=== PATIENT | female | born 1990 | race Caucasian/White ===

== ENCOUNTER 2017-07-19 22:50 | Emergency (ER) | payer SELFPAY ==
[~2017-07-19] VITALS: Ht 165.1 cm; Wt 163.3 kg
[~2017-07-19 22:50] MED LIST: CEPH-507 PO; CITA10TA PO; HYDR-2890 PO; IBP800T PO; LORA1TAB PO; MEDR10TA PO; METR500T21; MTF500T PO; NAPR550T PO; NYST15CR3 TP; OMEP20CA12 PO; ONDAN4ODT PO; ORTHO NOVUM 1/35 PO; PRM25T PO; PROG200C6; RANI75TA30 PO; SPIR25TA3 PO; SULF1TAB35 PO; SULF1TAB38 PO; ZYPREXA; [UNRECOGNIZED DRUG - OTHER]
--- NOTE | 2017-07-19 23:21 | ED GU-Female ---
General Stated Complaint: PERIOD FOR 1MONTH Source: patient Exam Limitations: no limitations History of Present Illness Date Seen by Provider: Jul 19, 2017 Time Seen by Provider: 23:10 Initial Comments Patient presents to the ER by private conveyance with a chief complaint of for the last months she's had solid. She says she's been soaking a tampon and a pad the last couple days every hour and a half to 2 hours. She is not having any chest pain shortness of breath dizziness lightheadedness, falls. She does not have any other significant medical history except for PCO S for which she uses metformin. She is not on control. She is sexually active. She says this happened but same time last year and they gave her a shot of testosterone which stopped it and then started treating her for her PCO S. She has not seen a surgeon for this nor has she seen her primary care physician. Nothing tonight has changed about it other than for the last week she says she's felt a little short of breath. Patient had an endometrial biopsy last year that was unremarkable. Allergies and Home Medications Allergies Coded Allergies: No Known Drug Allergies (Unverified , 02/05/12) Home Medications Metformin Hcl 500 Mg Tablet, 1 EACH PO BID WITH MEALS, (Reported) Patient Home Medication List Home Medication List Reviewed: Yes Constitutional: No chills, No diaphoresis, No fever EENTM: No hearing loss, No blurred vision Respiratory: No cough, No short of breath Cardiovascular: No chest pain, No palpitations Gastrointestinal: No abdominal pain, No constipation, No nausea, No vomiting Genitourinary: denies discharge, denies dysuria : No (PCO S) Musculoskeletal: No back pain, No joint pain Past Tvkhyro-Rlvmse-Ywwrfz Hx Patient Social History Alcohol Use: Denies Use Recreational Drug Use: No Smoking Status: Never a Smoker Recent Foreign Travel: No Contact w/Someone Who Travel: No Recent Hopitalizations: No Reproductive System Hx Reproductive Disorders: No Sexually Transmitted Disease: No HIV/AIDS: No Female Reproductive Disorders: Polycystic Ovarian Dis Endocrine Endocrine Disorders: Diabetes, Non-Insulin dep Psychosocial Behavioral Health Disorders: Anxiety, Depression Blood Transfusions Adverse Reaction to a Blood Tr: No Family Medical History Significant Family History: No Pertinent Family Hx Physical Exam Vital Signs Vital Signs - First Documented 07/19/17 23:00 Temp 98.0 Pulse 106 Resp 20 B/P (MAP) 130/90 (103) Pulse Ox 97 O2 Delivery Room Air Capillary Refill : General Appearance: WD/WN, no apparent distress HEENT: PERRL/EOMI, normal ENT inspection, pharynx normal Cardiovascular: normal peripheral pulses, regular rate, rhythm, no edema Respiratory: chest non-tender, lungs clear, normal breath sounds, no respiratory distress, no accessory muscle use Gastrointestinal: normal bowel sounds, non tender, soft Extremities: non-tender, normal capillary refill Neurologic/Psychiatric: alert, normal mood/affect, oriented x 3 Skin: normal color, warm/dry Progress/Results/Core Measures Suspected Sepsis SIRS Temperature: Pulse: Respiratory Rate: Laboratory Tests 07/19/17 23:10: White Blood Count 12.8H Blood Pressure / Mean: Laboratory Tests 07/19/17 23:10: Creatinine 0.82, Platelet Count 316, Total Bilirubin 0.2 Results/Orders Lab Results Laboratory Tests Test 07/19/17 23:10 Range/Units White Blood Count 12.8 H 4.3-11.0 10^3/uL Red Blood Count 5.41 4.35-5.85 10^6/uL Hemoglobin 13.6 11.5-16.0 G/DL Hematocrit 44 35-52 % Mean Corpuscular Volume 82 80-99 FL Mean Corpuscular Hemoglobin 25 25-34 PG Mean Corpuscular Hemoglobin Concent 31 L 32-36 G/DL Red Cell Distribution Width 16.3 H 10.0-14.5 % Platelet Count 316 130-400 10^3/uL Mean Platelet Volume 11.9 H 7.4-10.4 FL Neutrophils (%) (Auto) 57 42-75 % Lymphocytes (%) (Auto) 33 12-44 % Monocytes (%) (Auto) 6 0-12 % Eosinophils (%) (Auto) 4 0-10 % Basophils (%) (Auto) 0 0-10 % Neutrophils # (Auto) 7.3 1.8-7.8 X 10^3 Lymphocytes # (Auto) 4.2 H 1.0-4.0 X 10^3 Monocytes # (Auto) 0.7 0.0-1.0 X 10^3 Eosinophils # (Auto) 0.5 H 0.0-0.3 10^3/uL Basophils # (Auto) 0.0 0.0-0.1 10^3/uL Sodium Level 138 135-145 MMOL/L Potassium Level 4.0 3.6-5.0 MMOL/L Chloride Level 105 98-107 MMOL/L Carbon Dioxide Level 23 21-32 MMOL/L Anion Gap 10 5-14 MMOL/L Blood Urea Nitrogen 14 7-18 MG/DL Creatinine 0.82 0.60-1.30 MG/DL Estimat Glomerular Filtration Rate > 60 BUN/Creatinine Ratio 17 Glucose Level 153 H 70-105 MG/DL Calcium Level 9.4 8.5-10.1 MG/DL Total Bilirubin 0.2 0.1-1.0 MG/DL Aspartate Amino Transf (AST/SGOT) 31 5-34 U/L Alanine Aminotransferase (ALT/SGPT) 61 H 0-55 U/L Alkaline Phosphatase 72 40-136 U/L Total Protein 7.3 6.4-8.2 GM/DL Albumin 3.9 3.2-4.5 GM/DL My Orders Orders - ROGER BYRD Cbc With Automated Diff (07/19/17 23:14) Comprehensive Metabolic Panel (07/19/17 23:14) Ondansetron Oral Dissolve Tab (Zofran (07/19/17 23:45) Us Non Ob Pelvis Comp/Transvag (07/20/17 00:01) Medications Given in ED Current Medications Medications Dose Ordered Sig/Christen Route Start Time Stop Time Status Last Admin Dose Admin Ondansetron HCl 4 mg ONCE ONCE PO 07/19/17 23:45 07/19/17 23:46 DC 07/20/17 00:28 4 MG Vital Signs/I&O Vital Sign - Last 12Hours 07/19/17 23:00 Temp 98.0 Pulse 106 Resp 20 B/P (MAP) 130/90 (103) Pulse Ox 97 O2 Delivery Room Air Capillary Refill : Diagnostic Imaging Diagonstic Imaging: Ultrasound Plain Films/CT/US/NM/MRI: pelvis Comments Impression: Endometrial thickening. Ovaries not visualized bilaterally. Stat read Reviewed: Reviewed [place] Study, Reviewed by Me Departure Impression Impression: Primary Impression: Abnormal uterine bleeding Disposition: HOME, SELF-CARE Condition: Stable Departure-Patient Inst. Decision time for Depature: 01:14 Referrals: [facility] (PCP/Family) Primary Care Physician Patient Instructions: Heavy Periods (DC) Add. Discharge Instructions: Drink plenty of fluids follow up with [facility]. He can also follow up with an PROGRAMMING ENGINEER of your choice. Copy Copies To 1: MAEGAN DOTSON TITUS J Jul 19, 2017 23:21
[2017-07-19 23:24] LABS: BASOPHILS % (AUTO) 0 % (0-10); EOSINOPHILS # (AUTO) 0.5 10^3/uL (0.0-0.3); EOSINOPHILS % (AUTO) 4 % (0-10); HEMATOCRIT 44 % (35-52); HEMOGLOBIN 13.6 G/DL (11.5-16.0); LYMPHOCYTES # (AUTO) 4.2 X 10^3 (1.0-4.0); LYMPHOCYTES % (AUTO) 33 % (12-44); MEAN CORPUSCULAR HEMOGLOBIN 25 PG (25-34); MEAN CORPUSCULAR HGB CONC 31 G/DL (32-36); MEAN CORPUSCULAR VOLUME 82 FL (80-99); MEAN PLATELET VOLUME 11.9 FL (7.4-10.4); MONOCYTES # (AUTO) 0.7 X 10^3 (0.0-1.0); MONOCYTES % (AUTO) 6 % (0-12); NEUTROPHILS # (AUTO) 7.3 X 10^3 (1.8-7.8); NEUTROPHILS % (AUTO) 57 % (42-75); PLATELET COUNT 316 10^3/uL (130-400); RED BLOOD COUNT 5.41 10^6/uL (4.35-5.85); RED CELL DISTRIBUTION WIDTH 16.3 % (10.0-14.5); WHITE BLOOD COUNT 12.8 10^3/uL (4.3-11.0)
[2017-07-19] MEDS ORDERED: SPIR25TA3 PO (23:25)
[2017-07-19] MEDS ORDERED: ONDANSETRON 4 MG (ZOFRAN) ORAL DISSOLVE TAB PO ONE (23:45)
[2017-07-19 23:46] LABS: ALANINE AMINOTRANSFERASE 61 U/L (0-55); ALBUMIN 3.9 GM/DL (3.2-4.5); ALKALINE PHOSPHATASE 72 U/L (40-136); BILIRUBIN,TOTAL 0.2 MG/DL (0.1-1.0); BUN/CREATININE RATIO 17; CALCIUM 9.4 MG/DL (8.5-10.1); CARBON DIOXIDE 23 MMOL/L (21-32); CHLORIDE 105 MMOL/L (98-107); CREATININE SERUM 0.82 MG/DL (0.60-1.30); GFR ESTIMATED > 60; GLUCOSE 153 MG/DL (70-105); SODIUM 138 MMOL/L (135-145); TOTAL PROTEIN 7.3 GM/DL (6.4-8.2)
[2017-07-20 01:25] VITALS: BP 122/88
--- NOTE | 2017-07-20 06:59 | Diagnostic Imaging Report ---
INDICATION: Bleeding. TECHNIQUE: Multiple real-time grayscale images were obtained of the pelvis both transabdominally and endovaginally. FINDINGS: Uterus measures 8.4 x 4.1 x 4.3 cm. Endometrial thickness is 2 cm. Neither ovary was visualized. The examination was limited due to patient's body habitus. There are no obvious adnexal masses. No free pelvic fluid. IMPRESSION: Thickening of endometrium up to 2 cm. While this may reflect the proliferative phase of the patient's menstrual cycle, this is thicker than expected. Possibility of endometrial hyperplasia or polyp or less likely endometrial carcinoma cannot be excluded. Recommend clinical correlation. Dictated by: Dictated on workstation # [id number]
== END 2017-07-20 01:25 | disposition home or self-care (01) ==
LOC: EDUNIT# 22:50 → ER 22:52
DX: N93.8 Other specified abnormal uterine and vaginal bleeding (principal); E11.9 Type 2 diabetes mellitus without complications; F41.9 Anxiety disorder, unspecified; F32.9 Major depressive disorder, single episode, unspecified; Z79.84 Long term (current) use of oral hypoglycemic drugs; Z87.42 Personal history of other diseases of the female genital tract
CPT/HCPCS: 36415; 76830; 76856; 80053; 85025

== ENCOUNTER 2017-11-28 13:17 | Emergency (ER) | payer SELFPAY ==
[~2017-11-28] VITALS: Ht 162.6 cm; Wt 158.8 kg
[~2017-11-28 13:17] MED LIST changes: +SPIR25TA5 PO
[2017-11-28] MEDS ORDERED: METF500T5 PO (13:40)
[2017-11-28] MEDS ORDERED: NS IV 1000 ML 1,000 ML IV ONE (13:48)
[2017-11-28] MEDS ORDERED: inSUlin (REGULAR) HUMAN 1 UNIT/0.01 ML (CHARGE PER UNIT) IV STA (13:48)
[2017-11-28 13:54] LABS: BASOPHILS % (AUTO) 0 % (0-10); EOSINOPHILS # (AUTO) 0.5 10^3/uL (0.0-0.3); EOSINOPHILS % (AUTO) 6 % (0-10); HEMATOCRIT 34 % (35-52); HEMOGLOBIN 10.3 G/DL (11.5-16.0); LYMPHOCYTES # (AUTO) 3.5 X 10^3 (1.0-4.0); LYMPHOCYTES % (AUTO) 38 % (12-44); MEAN CORPUSCULAR HEMOGLOBIN 23 PG (25-34); MEAN CORPUSCULAR HGB CONC 30 G/DL (32-36); MEAN CORPUSCULAR VOLUME 74 FL (80-99); MEAN PLATELET VOLUME 12.9 FL (7.4-10.4); MONOCYTES # (AUTO) 0.5 X 10^3 (0.0-1.0); MONOCYTES % (AUTO) 6 % (0-12); NEUTROPHILS # (AUTO) 4.8 X 10^3 (1.8-7.8); NEUTROPHILS % (AUTO) 51 % (42-75); PLATELET COUNT 247 10^3/uL (130-400); RED BLOOD COUNT 4.57 10^6/uL (4.35-5.85); RED CELL DISTRIBUTION WIDTH 17.7 % (10.0-14.5); WHITE BLOOD COUNT 9.4 10^3/uL (4.3-11.0)
[2017-11-28 13:59] LABS: BILIRUBIN,URINE NEGATIVE (NEGATIVE); CLARITY,URINE SLIGHTLY CLOUDY; COLOR,URINE RED; GLUCOSE, URINE (UA) 4+ (NEGATIVE); KETONES,URINE 2+ (NEGATIVE); LEUKOCYTE ESTERASE ,URINE 1+ (NEGATIVE); NITRITE,URINE NEGATIVE (NEGATIVE); PH,URINE 5 (5-9); PROTEIN,URINE 3+ (NEGATIVE); UROBILINOGEN,URINE NORMAL (NORMAL)
[2017-11-28 14:05] LABS: BUN/CREATININE RATIO 13; CALCIUM 9.5 MG/DL (8.5-10.1); CARBON DIOXIDE 23 MMOL/L (21-32); CHLORIDE 104 MMOL/L (98-107); CREATININE SERUM 0.91 MG/DL (0.60-1.30); GFR ESTIMATED > 60; POTASSIUM 3.8 MMOL/L (3.6-5.0); SODIUM 136 MMOL/L (135-145)
[2017-11-28 14:06] LABS: ALANINE AMINOTRANSFERASE 79 U/L (0-55); ALBUMIN 3.7 GM/DL (3.2-4.5); ALKALINE PHOSPHATASE 92 U/L (40-136); BILIRUBIN,TOTAL 0.3 MG/DL (0.1-1.0); TOTAL PROTEIN 6.5 GM/DL (6.4-8.2)
[2017-11-28 14:09] LABS: GLUCOSE 432 MG/DL (70-105)
[2017-11-28 14:09] LABS: BACTERIA,URINE TRACE /HPF; RBC,URINE >100 /HPF
--- NOTE | 2017-11-28 14:47 | ED General ---
General Chief Complaint: Glucose Problems Stated Complaint: BS 465 Nursing Triage Note: ARRIVED VIA AMB TO ROOM 06. STATES HER BLOOD SUGAR HAS RAN IN THE 400'S ALL DAY. Nursing Sepsis Screen: No Definite Risk Source of Information: Patient Exam Limitations: No Limitations History of Present Illness Date Seen by Provider: Nov 28, 2017 Time Seen by Provider: 13:25 Initial Comments Here with report of elevated blood sugar that is been going on over the last week. Patient states that she's been drinking a large amount of fluid and urinating a lot. She has known hyperglycemia and is on agents but only oral agents. Denies fever or chills. Denies dysuria but does have frequency of larger volumes. Denies nausea, vomiting or diarrhea. Timing/Duration: 1 Week Severity: Moderate Associated Systoms: No Chest Pain, No Fever/Chills, No Nausea/Vomiting; Shortness of Air; No Weakness Allergies and Home Medications Allergies Coded Allergies: No Known Drug Allergies (Unverified , 02/05/12) Home Medications Metformin HCl 500 Mg Tablet, 500 MG PO TID, (Reported) Patient Home Medication List Home Medication List Reviewed: Yes Review of Systems Constitutional: see HPI; No chills, No fever EENTM: no symptoms reported Respiratory: no symptoms reported Cardiovascular: no symptoms reported Gastrointestinal: no symptoms reported Genitourinary: see HPI Musculoskeletal: no symptoms reported All Other Systems Reviewed Negative Unless Noted: Yes Past Vfnzbhx-Xxuejt-Ssxfia Hx Past Med/Social Hx: Reviewed Nursing Past Med/Soc Hx Patient Social History Alcohol Use: Occasionally Uses Recreational Drug Use: No Smoking Status: Current Everyday Smoker Type Used: Cigarettes Recent Foreign Travel: No Contact w/Someone Who Travel: No Recent Infectious Disease Expo: No Recent Hopitalizations: No Immunizations Up To Date PED Vaccines UTD: Yes Past Medical History Surgeries: Yes (wisdom teeth) Respiratory: No Cardiac: No Neurological: No Last Menstrual Period: Nov 28, 2017 Reproductive Disorders: No Female Reproductive Disorders: Polycystic Ovarian Dis Sexually Transmitted Disease: No HIV/AIDS: No Genitourinary: No Gastrointestinal: No Musculoskeletal: No Endocrine: Yes Diabetes, Non-Insulin dep Cancer: No Psychosocial: Yes Anxiety, Depression Integumentary: No Blood Disorders: No Adverse Reaction/Blood Tranf: No Family Medical History Reviewed Nursing Family Hx No Pertinent Family Hx Physical Exam Vital Signs Vital Signs - First Documented 11/28/17 13:25 Temp 98.0 Pulse 108 Resp 16 B/P (MAP) 151/98 (115) Pulse Ox 97 O2 Delivery Room Air Capillary Refill : Less Than 3 Seconds Height, Weight, BMI Height: 5'4.00" Weight: 350lbs. oz. 158.012369km; 58.24 BMI Method:Stated General Appearance: No Apparent Distress, WD/WN HEENT: PERRL/EOMI, Pharynx Normal Neck: Non Tender, Supple Respiratory: Lungs Clear, Normal Breath Sounds Cardiovascular: Regular Rate, Rhythm, No Murmur Gastrointestinal: Non Tender, Soft Back: Normal Inspection, No CVA Tenderness, No Vertebral Tenderness Extremity: Normal Range of Motion, Non Tender Neurologic/Psychiatric: Alert, Oriented x3 Skin: Normal Color, Warm/Dry Progress/Results/Core Measures Suspected Sepsis Recent Fever Within 48 Hours: No Infection Criteria Present: None New/Unexplained Altered Menta: No Sepsis Screen: No Definite Risk SIRS Temperature:98.0 Pulse: 108 Respiratory Rate: 16 Laboratory Tests 11/28/17 13:30: White Blood Count 9.4 Blood Pressure 151 /98 Mean: 115 Laboratory Tests 11/28/17 13:30: Creatinine 0.91, Platelet Count 247, Total Bilirubin 0.3 Results/Orders Lab Results Laboratory Tests Test 11/28/17 13:30 11/28/17 13:31 11/28/17 13:49 11/28/17 14:34 Range/Units White Blood Count 9.4 4.3-11.0 10^3/uL Red Blood Count 4.57 4.35-5.85 10^6/uL Hemoglobin 10.3 L 11.5-16.0 G/DL Hematocrit 34 L 35-52 % Mean Corpuscular Volume 74 L 80-99 FL Mean Corpuscular Hemoglobin 23 L 25-34 PG Mean Corpuscular Hemoglobin Concent 30 L 32-36 G/DL Red Cell Distribution Width 17.7 H 10.0-14.5 % Platelet Count 247 130-400 10^3/uL Mean Platelet Volume 12.9 H 7.4-10.4 FL Neutrophils (%) (Auto) 51 42-75 % Lymphocytes (%) (Auto) 38 12-44 % Monocytes (%) (Auto) 6 0-12 % Eosinophils (%) (Auto) 6 0-10 % Basophils (%) (Auto) 0 0-10 % Neutrophils # (Auto) 4.8 1.8-7.8 X 10^3 Lymphocytes # (Auto) 3.5 1.0-4.0 X 10^3 Monocytes # (Auto) 0.5 0.0-1.0 X 10^3 Eosinophils # (Auto) 0.5 H 0.0-0.3 10^3/uL Basophils # (Auto) 0.0 0.0-0.1 10^3/uL Sodium Level 136 135-145 MMOL/L Potassium Level 3.8 3.6-5.0 MMOL/L Chloride Level 104 98-107 MMOL/L Carbon Dioxide Level 23 21-32 MMOL/L Anion Gap 9 5-14 MMOL/L Blood Urea Nitrogen 12 7-18 MG/DL Creatinine 0.91 0.60-1.30 MG/DL Estimat Glomerular Filtration Rate > 60 BUN/Creatinine Ratio 13 Glucose Level 432 *H 70-105 MG/DL Calcium Level 9.5 8.5-10.1 MG/DL Total Bilirubin 0.3 0.1-1.0 MG/DL Aspartate Amino Transf (AST/SGOT) 41 H 5-34 U/L Alanine Aminotransferase (ALT/SGPT) 79 H 0-55 U/L Alkaline Phosphatase 92 40-136 U/L Total Protein 6.5 6.4-8.2 GM/DL Albumin 3.7 3.2-4.5 GM/DL Glucometer 422 *H 346 H 70-110 MG/DL Urine Color RED H Urine Clarity SLIGHTLY CLOUDY Urine pH 5 5-9 Urine Specific [place] 1.015 L 1.016-1.022 Urine Protein 3+ H NEGATIVE Urine Glucose (UA) 4+ H NEGATIVE Urine Ketones 2+ H NEGATIVE Urine Nitrite NEGATIVE NEGATIVE Urine Bilirubin NEGATIVE NEGATIVE Urine Urobilinogen NORMAL NORMAL MG/DL Urine Leukocyte Esterase 1+ H NEGATIVE Urine RBC (Auto) 5+ H NEGATIVE Urine RBC >100 H /HPF Urine WBC 2-5 /HPF Urine Squamous Epithelial Cells 5-10 /HPF Urine Crystals NONE /LPF Urine Bacteria TRACE /HPF Urine Casts NONE /LPF Urine Mucus NEGATIVE /LPF Urine Culture Indicated NO My Orders Orders - JOSÉ RIVERA MD Cbc With Automated Diff (11/28/17 13:48) Comprehensive Metabolic Panel (11/28/17 13:48) Ua Culture If Indicated (11/28/17 13:48) Saline Lock/Iv-Start (11/28/17 13:48) Ns Iv 1000 Ml (Sodium Chloride 0.9%) (11/28/17 13:48) Insulin (Regular) Human (Humulin R (Per (11/28/17 13:48) Urine Bedside (11/28/17 13:48) Medications Given in ED Current Medications Medications Dose Ordered Sig/Christen Route Start Time Stop Time Status Last Admin Dose Admin Sodium Chloride 1,000 ml @ 0 mls/hr Q0M ONCE IV 11/28/17 13:48 11/28/17 13:50 DC 11/28/17 13:58 1,000 MLS/HR Vital Signs/I&O 11/28/17 13:25 Temp 98.0 Pulse 108 Resp 16 B/P (MAP) 151/98 (115) Pulse Ox 97 O2 Delivery Room Air Capillary Refill : Less Than 3 Seconds Blood Pressure Mean: 115 Point of Care Testing Finger Stick Blood Glucose: 346 Urine -Bedside: Negative Progress Note : Progress Note Seen and evaluated. IV, labs and UA ordered. Normal saline 1 L bolus. Insulin 10 units IV ordered. Monitor patient. 1510: Blood sugar is improved to lower 300s. I discussed the case with Dr. Lomeli. She would like the patient sent over to clinic where they will initiate the long-acting twice a day and then diabetes education. I discussed this with the patient and family and they will head-on over. Discharged home with return precautions. Patient verbalize understanding instructions and agreement with plan. Departure Impression Primary Impression: Uncontrolled diabetes mellitus Qualified Codes: E11.8 - Type 2 diabetes mellitus with unspecified complications; E11.65 - Type 2 diabetes mellitus with hyperglycemia Disposition: 01 HOME, SELF-CARE Condition: Improved Departure-Patient Inst. Decision time for Depature: 15:28 Referrals: [facility] (PCP/Family) Primary Care Physician Patient Instructions: Diabetes Type 2 (DC) Add. Discharge Instructions: All discharge instructions reviewed with patient and/or family. Voiced understanding. Follow-up at the clinic after leaving the ER. They will give you diabetes education and initiate long-term insulin use. It is important that he go directly to the clinic. Dang is the diabetic aboriginal education worker coordinator and will assist you. Return for worse pain, fever, vomiting, weakness, breathing problems or other concerns as needed. JOSÉ IRVERA MD Nov 28, 2017 14:47
[2017-11-28 15:40] VITALS: BP 158/92
== END 2017-11-28 15:40 | disposition home or self-care (01) ==
LOC: EDUNIT# 13:17 → ER 13:19
DX: E11.65 Type 2 diabetes mellitus with hyperglycemia (principal); F41.9 Anxiety disorder, unspecified; F32.9 Major depressive disorder, single episode, unspecified; F17.210 Nicotine dependence, cigarettes, uncomplicated; Z79.84 Long term (current) use of oral hypoglycemic drugs; Z87.448 Personal history of other diseases of urinary system
CPT/HCPCS: 36415; 80053; 81000; 82962; 84703; 85025; 96361; 96374